=== PATIENT | male | born 1965 | race Caucasian/White ===

== ENCOUNTER 2020-11-23 15:13 | Outpatient (NON) | payer OTHER, SELFPAY ==
[2020-11-23 19:01] LABS: Source Synovial Fluid Synovial fluid
[2020-11-23 19:06] LABS: Appearance Synovial Fluid Bloody (Clear); Color Synovial Fluid Red (Colorless)
[2020-11-23 19:07] LABS: Lymphocytes Synovial Fluid 38 %; Macrophages Synovial Fluid 4 %; Neutrophils Synovial Fluid 58 % (0-25)
== END 2020-11-23 15:14 | disposition home or self-care (01) ==
PROVIDERS: PCP Internal Medicine; Visit Provider Orthopaedic Surgery
DX: M70.21 Olecranon bursitis, right elbow (principal)
CPT/HCPCS: 36415; 87070; 87075; 87205; 88108; 89051; 89060

== ENCOUNTER → 2022-04-18 10:36 | Outpatient (CLI) | payer OTHER, SELFPAY ==
--- NOTE | ~2022-04-18 | CT_ITS ---
EXAMINATION: CT diagnostic chest w con DATE: 04/18/2022 11:03 INDICATION: Cough and shortness of breath post COVID 19 TECHNIQUE: Transaxial computed tomographic images of the chest were obtained after the administration of 75 cc of Omnipaque 350 intravenous contrast. The dose-length product (DLP) was 689.80 mGy-cm. Ite rative reconstruction was used. COMPARISON: None FINDINGS: There is mild dependent atelectasis. The lungs are free of acute opacities. No pleural effu michael or pneumothorax. No pathologically enlarged thoracic lymph nodes are identified. The heart size is normal. There is mild thoracic spondylosis. IMPRESSION: 1. No acute cardiopulmonary abnormality. Reviewed, dictated and finalized at location B. [facility]
[2022-04-18 10:54] LABS: Estimated Glomerular Filt Rate > 60
== END ==
PROVIDERS: PCP Physician Assistant Medical; Visit Provider Physician Assistant Medical
DX: R09.1 Pleurisy (principal); R06.89 Other abnormalities of breathing; R06.00 Dyspnea, unspecified; R05.3 Chronic cough; U09.9 Post COVID-19 condition, unspecified
CPT/HCPCS: 71260; Q9967

== ENCOUNTER 2022-10-10 07:47 | Outpatient (CLI) | payer OTHER, SELFPAY ==
--- NOTE | 2022-10-10 08:19 | ECHO_ITS ---
Patient Info Name: Fernando Hilliard Age: 57 years : 1965 Gender: Male Ht: 76 in Wt: 264 lbs BSA: 2.56 m2 HR: 64 bpm BP: 145 / 111 mmHg Heart Rhythm: Sinus Rhythm Technical Quality: Good Exam Date: 10/10/2022 8:44 AM Exam Location: [facility] Patient Status: Outpatient Admit Date: 10/10/2022 Staff Ordering Physician: Tavon Miller MD Powder Monkey: Kaitlyn Erickson RDCS Attending Provider: Tavon Miller MD Referring Physician: Paul EID; Exam Type: CA echo doppler color flow Study Info Indications - shortness of breath Complete two-dimensional, color flow and Doppler transthoracic echocardiogram is performed. Summary 1. Complete two-dimensional, color flow and Doppler transthoracic echocardiogram is performed. 2. Left ventricular chamber dimension is normal. 3. Left ventricular systolic function is normal, estimated at 60-65%. 4. There is mildly increased left ventricular wall thickness. 5. Right ventricular systolic function is normal. 6. There is trace mitral valve regurgitation. 7. There is mild tricuspid valve regurgitation. 8. There is mild pulmonic regurgitation. 9. The aortic root size at the sinus of Valsalva is dilated. Left Ventricle Left ventricular chamber dimension is normal. Left ventricular systolic function is normal, estimated at 60-65%. There is mildly increased left ventricular wall thickness. Right Ventricle Right ventricular chamber dimension is normal. Right ventricular systolic function is normal. Left Atria Left atrial chamber dimension is normal. Right Atria Right atrial chamber dimension is normal. Atrial Septum Intact interatrial septum visualized by color flow imaging. Aortic Valve The aortic valve is trileaflet. There is no aortic valve stenosis. There is no aortic valve regurgitation. Pulmonic Valve There is mild pulmonic regurgitation. Mitral Valve There is trace mitral valve regurgitation. Tricuspid Valve There is mild tricuspid valve regurgitation. Pericardium/Pleural There is no pericardial effusion. Inferior Vena Cava Normal inferior vena cava with >50% collapse upon inspiration consistent with normal right atrial pressure, 3 mmHg. Aorta The aortic root size at the sinus of Valsalva is dilated. Left Ventricular Outflow Tract Name Value Normal LVOT 2D LVOT Diameter 2.6 cm LVOT Doppler LVOT Peak Gradient 5 mmHg LVOT Mean Gradient 3 mmHg LVOT VTI 22 cm LVOT VTI/AV VTI Ratio 1.0 LVOT Stroke Volume 120 ml LVOT CO 7.1 l/min LVOT CI 2.8 l/min/m2 Pulmonic Valve Name Value Normal RVOT Doppler RVOT Peak Gradient 2 mmHg PV Doppler PV Peak Gradient
--- NOTE | 2022-10-14 19:16 | WPDSIXMINUTE ---
Six Minute Walk Procedure Procedure Performed Pulmonary Stress Test (6 min walk) Six Minute Walk Six Minute Walk: DATE OF SERVICE: 10/10/2022 REQUESTING: Tavon Miller M.D. REASON FOR TESTING: Shortness of breath SIX MINUTE WALK This test was conducted per ATS guidelines. The initial saturation was 97%, and initial heart rate was 66 beats per minute. The patient walked without stopping, completing 1000 ft/304.8 m while breathing room air. The saturation at the end of testing was 95%, and the heart rate was 78. The lowest saturation was 94% IMPRESSION: This is a normal study. The patient did not require supplemental oxygen with exertion. Mariama Kumar MD
== END 2022-10-10 07:48 | disposition home or self-care (01) ==
PROVIDERS: Visit Provider Internal Medicine Pulmonary Disease
DX: R06.02 Shortness of breath (principal); J40 Bronchitis, not specified as acute or chronic; Z72.0 Tobacco use; I08.3 Combined rheumatic disorders of mitral, aortic and tricuspid valves
CPT/HCPCS: 93306; 94618

== ENCOUNTER 2022-11-15 10:14 | Outpatient (CLI) | payer OTHER, SELFPAY ==
--- NOTE | 2022-12-07 19:43 | WPDSLEEPSTUD ---
Sleep Study Date of Study: 11/15/22 Ordering Provider: Tavon Miller MD Interpreting Physician: Mariama Kumar MD Sleep Study Type: Split Polysomnogram Height: 1.93 m Weight: 118.388 kg Body Mass Index: 31.7 Neck Circumference (inches): 17 [place]: 9 Reason for Sleep Study Snoring, daytime hypersomnia, nocturnal hypoxia on 2L/min O2 supplemental oxygen with sleep. Sleep History Fernando Hilliard is a 57-year-old man with history of hypertension, Parkinson?s disease, GERD and post-COVID dyspnea who presented to the sleep lab for a split night study for evaluation of daytime hypersomnia, nocturnal hypoxia, and snoring. He occasionally awakens from sleep short of breath.? He frequently awakens at night with heartburn, belching or coughing.? He frequently snores and occasionally snores loud enough for others to complain. He occasionally has trouble sleeping when he has a cold. He rarely has breathing problems at night. He constantly sweats excessively at night. He occasionally falls asleep during the day. He occasionally falls asleep involuntarily and rarely falls asleep while driving.? He frequently notices his heart pounding or beating irregularly during the night.? He never experiences loss of muscle tone with strong emotion. He occasionally feels paralyzed on waking or falling asleep. He occasionally experiences vivid dreams upon waking or falling asleep. He rarely feels afraid of going to sleep. He occasionally has nightmares. He occasionally recalls his dreams. He frequently has thoughts racing through his mind. He rarely feels sad or depressed. He rarely feels anxiety or worry about things. He occasionally feels muscular tension. He constantly notices parts of his body jerk. He occasionally kicks during the night. He occasionally feels crawling or aching feelings in his legs. He constantly feels leg pain at night. He does not grind his teeth during sleep and rarely has morning jaw pain. He constantly feels bothered by pain during the day and is occasionally awakened by pain during the night. He constantly wakes up feeling stiff, sore and achy in the morning with pain in his neck, spine, or joints. Normal bedtime is around 10pm to 10:30pm on the weekdays and same on the weekends, usually falling asleep in 15 to 20 minutes. He typically gets about 4 to 5 hours of sleep per night. His wake-up time is around 6am on the weekdays and same on the weekends. He typically wakes up around 3 times per night and can be awake for 5 to 10 minutes each. He occasionally watches television before falling asleep. Habits:? Never tobacco smoker. Drinks about 4 to 5 caffeinated beverages per day. Alcohol use is 2 to 3 drinks per week. He does not use recreational substances. [facility] Past Medical History Medical History Allergies Aortic root dilation 3.6 cm, Echo Sep 2022 Arthritis of elbow, right, degenerative Constipation GERD (gastroesophageal reflux disease) Hearing loss Hypertension Olecranon bursitis of right elbow Parkinsons disease Small bowel obstruction Urinary frequency Vertigo Surgical History Surgical History History of colonoscopy History of removal of cyst Family History Family History Father Family history of malignant neoplasm of breast in first degree relative Family history of diabetes mellitus in first degree relative Other Family history of cardiovascular disease Hypertension Social History Social History Smoking status: Never smoker Alcohol intake: current Drinks per week: 3 Substance use: never Substance use type: does not use Living arrangements: with family Occupation/Education: occupation 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
[2022-12-07 19:53] VITALS: BMI 31.7
== END 2022-11-16 07:00 | disposition home or self-care (01) ==
LOC: ANHCSM 10:14
PROVIDERS: Visit Provider Internal Medicine Pulmonary Disease
DX: G47.33 Obstructive sleep apnea (adult) (pediatric) (principal); G47.10 Hypersomnia, unspecified; Z68.31 Body mass index [BMI] 31.0-31.9, adult
CPT/HCPCS: 95811